=== PATIENT | female | born 1965 | race African-American/Black ===

== ENCOUNTER 2022-02-19 13:21 | Inpatient (IN) | payer MEDICAID ==
[~2022-02-19] VITALS: Ht 162.6 cm; Wt 91.0 kg
[~2022-02-19 13:21] MED LIST: ALBU18HF2 IH; BENA1TAB18 PO
[2022-02-19] MEDS ORDERED: NITROGLYCERIN OINT 1GM/INCH UDPKT TD ONE (14:15)
[2022-02-19] MEDS ORDERED: ASPIRIN 81MG TABLET PO ONE (14:15)
[2022-02-19] MEDS ORDERED: FUROSEMIDE 40MG/4ML VIAL IV ONE (14:15)
[2022-02-19 14:33] LABS: HEMATOCRIT. 55.3 % (36.0-48.0); HEMOGLOBIN. 18.3 g/dL (12.0-16.0); MEAN CORPUSCULAR HEMOGLOBIN 29.9 pg (28.0-32.0); MEAN CORPUSCULAR VOLUME 90.3 fL (81.0-99.0); MEAN PLATELET VOLUME 9.2 fl (7.4-10.4); PLATELET 157 x1000/uL (130-400); RED BLOOD CELL COUNT 6.13 mill/uL (4.2-5.4); RED CELL DISTRIBUTION WIDTH 15.7 % (11.6-14.6)
[2022-02-19 14:50] LABS: CHLORIDE 98 mEq/L (98-107)
[2022-02-19 15:14] LABS: BG BASE EXCESS 4.5 mmol/L (-2.0-2.0); BG CARBOXYHEMOGLOBIN 10.2 % (0.5-1.5); BG DEOXYHEMOGLOBIN 11.3 % (0.0-5.0); BG FRACTION INSPIRED OXYGEN 21; BG HCO3 ACT 33.1 mmol/L (22.0-26.0); BG METHEMOGLOBIN 0.2 % (0.0-1.5); BG OXYGEN SATURATION 87.4 % (92.0-98.5); BG OXYHEMOGLOBIN 78.3 % (94.0-97.0); BG PCO2 63.5 mmHg (35.0-45.0); BG PH 7.335 (7.350-7.450); BG PO2 45.2 mmHg (75.0-100.0); BG SAMPLE SITE RIGHT RADIAL; BG TOTAL HEMOGLOBIN 18.7 g/dL (12.0-18.0); BG VENT MODE ROOM AIR
[2022-02-19 16:29] LABS: BG CARBOXYHEMOGLOBIN 8.3 % (0.5-1.5); BG DEOXYHEMOGLOBIN 5.1 % (0.0-5.0); BG FRACTION INSPIRED OXYGEN 40; BG HCO3 ACT 34.6 mmol/L (22.0-26.0); BG METHEMOGLOBIN 0.5 % (0.0-1.5); BG OXYGEN SATURATION 94.4 % (92.0-98.5); BG OXYHEMOGLOBIN 86.1 % (94.0-97.0); BG PCO2 63.6 mmHg (35.0-45.0); BG PH 7.354 (7.350-7.450); BG PO2 68.3 mmHg (75.0-100.0); BG SAMPLE SITE RIGHT RADIAL; BG TOTAL HEMOGLOBIN 19.2 g/dL (12.0-18.0); BG VENT MODE NASAL CANNULA
[2022-02-19 17:08] LABS: PLATELET ESTIMATE NORMAL
[2022-02-19] MEDS ORDERED: ONDANSETRON HCL 4MG/2ML INJ IV STA (18:06)
[2022-02-19] MEDS ORDERED: MORPHINE SULFATE 4 MG/ML CPJ (NOT FOR IM USE) IV STA (18:06)
[2022-02-19 18:24] LABS: BG BASE EXCESS 7.1 mmol/L (-2.0-2.0); BG CARBOXYHEMOGLOBIN 6.8 % (0.5-1.5); BG DEOXYHEMOGLOBIN 0.2 % (0.0-5.0); BG FRACTION INSPIRED OXYGEN 100; BG HCO3 ACT 39.1 mmol/L (22.0-26.0); BG METHEMOGLOBIN 0.7 % (0.0-1.5); BG OXYGEN SATURATION 99.8 % (92.0-98.5); BG OXYHEMOGLOBIN 92.3 % (94.0-97.0); BG PCO2 89.6 mmHg (35.0-45.0); BG PH 7.258 (7.350-7.450); BG PO2 421.9 mmHg (75.0-100.0); BG SAMPLE SITE RIGHT BRACHIAL; BG TOTAL HEMOGLOBIN 18.1 g/dL (12.0-18.0); BG VENT MODE MASK - BIPAP
[2022-02-19] MEDS: NITROGLYCERIN OINT 1GM/INCH UDPKT TD SCH (20:51)
[2022-02-19] MEDS ORDERED: ACETAMINOPHEN 325MG TABLET PO PRN (21:00)
[2022-02-19] MEDS ORDERED: CLONIDINE 0.1MG TABLET PO PRN (21:00)
[2022-02-19] MEDS ORDERED: DOCUSATE SODIUM 100MG CAPSULE PO PRN (21:00)
[2022-02-19] MEDS ORDERED: GUAIFENESIN 200MG/10ML SUGAR FREE UDC PO PRN (21:00)
[2022-02-19] MEDS ORDERED: CLONIDINE 0.1MG TABLET PO NR (21:00)
[2022-02-19] MEDS ORDERED: MAGNESIUM/ALUMINUM HYDROXIDE/SIMETHICONE 30ML UDC PO PRN (21:00)
[2022-02-19] MEDS ORDERED: MAGNESIUM 2 G PREMIX 50 ML IV NR (21:15)
[2022-02-19 21:40] LABS: PHOSPHORUS 4.4 mg/dL (2.5-4.9)
[2022-02-19] MEDS: METHYLPREDNISOLONE SOD SUCC 40 MG/ML VIAL IV SCH (21:41)
[2022-02-19] MEDS ORDERED: AZITHROMYCIN 500MG/250ML 250 ML IV SCH (21:45)
[2022-02-19] MEDS ORDERED: METHYLPREDNISOLONE SOD SUCC 125 MG/2 ML VIAL IV NR (21:45)
[2022-02-19 22:06] LABS: VITAMIN B12 SERUM 526 pg/mL (211-911)
[2022-02-19 22:54] LABS: D-DIMER 0.69 mg/L FEU (<0.50); INR 1.1; PROTHROMBIN TIME 11.9 sec (9.6-11.0)
[2022-02-19 23:00] LABS: CREATINE KINASE 106 IU/L (26-192)
[2022-02-20] MEDS ORDERED: BUDESONIDE 0.5MG/2ML NEB HHN SCH
[2022-02-20] MEDS: NITROGLYCERIN OINT 1GM/INCH UDPKT TD SCH (04:45)
[2022-02-20 06:40] LABS: CHLORIDE 95 mEq/L (98-107)
[2022-02-20 06:48] LABS: CREATINE KINASE 99 IU/L (26-192)
[2022-02-20 06:55] LABS: HEMATOCRIT. 49.8 % (36.0-48.0); HEMOGLOBIN. 16.5 g/dL (12.0-16.0); MEAN CORPUSCULAR HEMOGLOBIN 29.7 pg (28.0-32.0); MEAN CORPUSCULAR VOLUME 90.1 fL (81.0-99.0); MEAN PLATELET VOLUME 8.6 fl (7.4-10.4); PLATELET 137 x1000/uL (130-400); RED BLOOD CELL COUNT 5.53 mill/uL (4.2-5.4); RED CELL DISTRIBUTION WIDTH 15.4 % (11.6-14.6)
[2022-02-20 07:18] LABS: HDL CHOLESTEROL 58 mg/dL (40-59); LDL CHOLESTEROL 91 mg/dL (5-100); T4 FREE 0.98 ng/dL (0.76-1.46)
[2022-02-20 07:52] LABS: BG CARBOXYHEMOGLOBIN 3.5 % (0.5-1.5); BG HCO3 ACT 35.1 mmol/L (22.0-26.0); BG METHEMOGLOBIN 0.3 % (0.0-1.5); BG OXYGEN SATURATION 92.7 % (92.0-98.5); BG OXYHEMOGLOBIN 89.2 % (94.0-97.0); BG PCO2 90.7 mmHg (35.0-45.0); BG PH 7.206 (7.350-7.450); BG SAMPLE SITE RIGHT RADIAL; BG TOTAL HEMOGLOBIN 17.6 g/dL (12.0-18.0); BG VENT MODE MASK - BIPAP
[2022-02-20] MEDS: METHYLPREDNISOLONE SOD SUCC 40 MG/ML VIAL IV SCH (07:55)
[2022-02-20] MEDS: IPRATROPIUM/ALBUTEROL 0.5-3(2.5)MG/3ML NEB HHN PRN ×2 (08:02→11:18)
[2022-02-20] MEDS ORDERED: ENOXAPARIN 30MG/0.3ML SYR SUBCUT SCH (09:00)
[2022-02-20] MEDS ORDERED: HYDROCHLOROTHIAZIDE 12.5MG CAPSULE PO SCH (09:00)
[2022-02-20] MEDS ORDERED: FUROSEMIDE 40MG/4ML VIAL IVP SCH (09:00)
[2022-02-20] MEDS ORDERED: BENAZEPRIL 10MG TABLET PO SCH (09:00)
[2022-02-20] MEDS ORDERED: PANTOPRAZOLE SODIUM 40 MG/VIAL IV SCH (09:00)
[2022-02-20] MEDS ORDERED: TERBUTALINE SULFATE 1MG/ML VIAL SUBCUT NR (09:30)
[2022-02-20 10:47] LABS: PLATELET ESTIMATE NORMAL
[2022-02-20 11:13] LABS: BG BASE EXCESS 5.9 mmol/L (-2.0-2.0); BG CARBOXYHEMOGLOBIN 2.4 % (0.5-1.5); BG DEOXYHEMOGLOBIN 2.8 % (0.0-5.0); BG FRACTION INSPIRED OXYGEN 60; BG HCO3 ACT 39.5 mmol/L (22.0-26.0); BG METHEMOGLOBIN 0.5 % (0.0-1.5); BG OXYGEN SATURATION 97.1 % (92.0-98.5); BG OXYHEMOGLOBIN 94.3 % (94.0-97.0); BG PCO2 103.4 mmHg (35.0-45.0); BG PO2 99.8 mmHg (75.0-100.0); BG SAMPLE SITE RIGHT RADIAL; BG TOTAL HEMOGLOBIN 18.3 g/dL (12.0-18.0); BG VENT MODE MASK - BIPAP
[2022-02-20 12:00] VITALS: BP 145/114
[2022-02-20] MEDS ORDERED: AZITHROMYCIN 500 MG in DEXT 5% WATER 250 ML IV SCH (21:00)
== END 2022-02-20 12:39 | disposition left against medical advice (07) | DRG 194 ==
LOC: ER 13:21 → MICUSO 17:24 → EDBEDREQ 17:33
PROVIDERS: ADMIT Hospitalist; ATTEND Hospitalist
PROC: 5A09357 Assistance with Respiratory Ventilation, Less than 24 Consecutive Hours, Continuous Positive Airway Pressure (ICD-10-PCS; principal; 2022-02-19)
DX: I11.0 Hypertensive heart disease with heart failure (principal); J96.01 Acute respiratory failure with hypoxia; J96.02 Acute respiratory failure with hypercapnia; E44.1 Mild protein-calorie malnutrition; J45.901 Unspecified asthma with (acute) exacerbation; E87.1 Hypo-osmolality and hyponatremia; I50.9 Heart failure, unspecified; J44.9 Chronic obstructive pulmonary disease, unspecified; Z20.822 Contact with and (suspected) exposure to COVID-19; F17.210 Nicotine dependence, cigarettes, uncomplicated; R73.9 Hyperglycemia, unspecified; T38.0X5A Adverse effect of glucocorticoids and synthetic analogues, initial encounter; F19.10 Other psychoactive substance abuse, uncomplicated; E66.01 Morbid (severe) obesity due to excess calories; D75.1 Secondary polycythemia; J84.9 Interstitial pulmonary disease, unspecified; Z53.29 Procedure and treatment not carried out because of patient's decision for other reasons; Z79.899 Other long term (current) drug therapy; Z91.199 Patient's noncompliance with other medical treatment and regimen due to unspecified reason; Y92.89 Other specified places as the place of occurrence of the external cause; Z68.34 Body mass index [BMI] 34.0-34.9, adult
CPT/HCPCS: 36415; 36600; 71045; 71250; 80053; 80061; 82375; 82550; 82607; 82652; 82805; 83036; 83735; 83880; 84100; 84439; 84443; 84481; 84484; 85025; 85379; 87426; 93005; 93970; 94640; 94660; 99291; C9113; C9803; J0456; J1650; J1940; J2270; J2405; J2920; J3105; J3475; J7626

== ENCOUNTER 2024-08-19 12:29 | Inpatient (IN) | payer OTHER, MEDICAID ==
[~2024-08-19] VITALS: Ht 165.1 cm; Wt 89.8 kg
[2024-08-19 11:40] VITALS: RESP 27
[2024-08-19] MEDS: NITROGLYCERIN OINT 1GM/INCH UDPKT TD ONE (13:49)
[2024-08-19] MEDS: METHYLPREDNISOLONE SOD SUCC 125MG/2ML (ACT-O-VIAL) IV STA (13:49)
[2024-08-19 14:19] LABS: HEMATOCRIT. 43.8 % (36.0-48.0); HEMOGLOBIN. 14.1 g/dL (12.0-16.0); MEAN CORPUSCULAR HEMOGLOBIN 28.8 pg (28.0-32.0); MEAN CORPUSCULAR HGB CONC 32.1 g/dL (31.0-37.0); MEAN CORPUSCULAR VOLUME 89.9 fL (81.0-99.0); MEAN PLATELET VOLUME 8.3 fl (7.4-10.4); PLATELET 166 x1000/uL (130-400); RED BLOOD CELL COUNT 4.88 mill/uL (4.2-5.4); RED CELL DISTRIBUTION WIDTH 16.7 % (11.6-14.6); WHITE BLOOD COUNT 2.9 x1000/uL (4.5-11.0)
[2024-08-19 14:23] LABS: CHLORIDE 100 mEq/L (98-107); DIFFERENTIAL COMMENT 1; POTASSIUM 4.2 mEq/L (3.5-5.1); SODIUM 139 mEq/L (136-145)
[2024-08-19 14:25] LABS: CALCIUM 9.3 mg/dL (8.7-10.4); CARBON DIOXIDE 31 mEq/L (21-32)
[2024-08-19 14:29] LABS: GLUCOSE 95 mg/dL (70-105); UREA NITROGEN BLOOD 20 mg/dL (9-23)
[2024-08-19 14:31] LABS: ALANINE AMINOTRANSFERASE 40 IU/L (10-49); ALBUMIN 4.2 g/dL (3.2-4.8); ASPARTATE AMINOTRANSFERASE 35 IU/L (<34); BILIRUBIN DIRECT 0.3 mg/dL (<=3.0); BILIRUBIN TOTAL 0.6 mg/dL (0.1-1.0); PROTEIN TOTAL 7.4 g/dL (6.0-8.3); TROPONIN I HIGH SENSITIVITY 31 ng/L (3.0-34)
[2024-08-19] MEDS: IPRATROPIUM BROMIDE (0.02%) 0.5MG/2.5ML NEB HHN STA (14:49)
[2024-08-19] MEDS: ALBUTEROL (0.083%) 2.5MG/3ML NEB HHN STA (14:49)
[2024-08-19 15:01] LABS: ANISOCYTOSIS 1+; PLATELET ESTIMATE NORMAL
[2024-08-19 15:31] VITALS: RESP 19
[2024-08-19 15:50] LABS: INR 1.1; PROTHROMBIN TIME 12.2 sec (9.6-11.0)
[2024-08-19 15:54] LABS: TROPONIN I HIGH SENSITIVITY 28 ng/L (3.0-34)
[2024-08-19] MEDS: FUROSEMIDE 40MG/4ML VIAL IVP ONE (16:38)
[2024-08-19] MEDS: LABETALOL 5MG/ML 4ML INJ IV ONE (16:38)
[2024-08-19] MEDS: HYDRALAZINE 20MG/ML VIAL IV ONE (18:46)
[2024-08-19 19:43] VITALS: RESP 21
[2024-08-19 22:00] VITALS: BP 157/102; PULSE 83; RESP 11; TEMP 35.9; O2SAT 95
[2024-08-19] MEDS ORDERED: IPRATROPIUM/ALBUTEROL 0.5-3(2.5)MG/3ML NEB HHN PRN (23:00)
[2024-08-19] MEDS: HYDRALAZINE HCL 50MG TABLET PO SCH (23:18)
[2024-08-19 23:33] VITALS: RESP 15
[2024-08-19 23:37] VITALS: BP 175/106; PULSE 86; RESP 16; TEMP 36.1
[2024-08-20] VITALS (14 sets, daily range): BP systolic 124–201; BP diastolic 66–136; PULSE 79–104; RESP 14–26; TEMP 36.1–36.7; O2SAT 93–99
[2024-08-20] MEDS ORDERED: HYDRALAZINE 20MG/ML VIAL IV SCH
[2024-08-20] MEDS: FUROSEMIDE 40MG/4ML VIAL IVP NR (00:51)
[2024-08-20 01:28] LABS: BG FRACTION INSPIRED OXYGEN 50; BG HCO3 ACT 33.3 mmol/L (21.0-28.0); BG METHEMOGLOBIN 0.1 % (0.5-1.5); BG OXYGEN SATURATION 92.8 % (94.0-98.0); BG OXYHEMOGLOBIN 89.9 % (94.0-98.0); BG PCO2 78.4 mmHg (32.0-45.0); BG PH 7.246 (7.350-7.450); BG PO2 73.4 mmHg (83.0-108.0); BG SAMPLE SITE LEFT RADIAL; BG TOTAL HEMOGLOBIN 15.9 g/dL (12.0-16.0); BG VENT MODE MASK - BIPAP
[2024-08-20] MEDS ORDERED: CARVEDILOL 3.125 MG TABLET PO SCH (09:00)
[2024-08-20] MEDS: ASPIRIN 81MG TABLET PO SCH (09:39)
[2024-08-20] MEDS: FUROSEMIDE 40MG/4ML VIAL IVP SCH (09:39)
[2024-08-20] MEDS: LOSARTAN 50 MG TABLET PO SCH (09:39)
[2024-08-20] MEDS: METHYLPREDNISOLONE SOD SUCC 40MG/ML (ACT-O-VIAL) IV SCH ×2 (09:40→21:19)
[2024-08-20] MEDS: ENOXAPARIN 30MG/0.3ML SYR SUBCUT SCH (09:40)
[2024-08-20] MEDS: NIFEDIPINE XL 60MG TAB PO SCH (13:35)
[2024-08-20] MEDS: IPRATROPIUM/ALBUTEROL 0.5-3(2.5)MG/3ML NEB HHN SCH (16:45)
[2024-08-20] MEDS: LORAZEPAM 2MG/ML UD SYRINGE IV PRN (22:59)
[2024-08-21] VITALS (12 sets, daily range): BP systolic 114–166; BP diastolic 70–107; PULSE 85–102; RESP 16–29; TEMP 36.3–36.8; O2SAT 89–100
[2024-08-21 10:28] LABS: BG BASE EXCESS 4.4 mmol/L (-2.0-3.0); BG CARBOXYHEMOGLOBIN 1.9 % (0.5-1.5); BG DEOXYHEMOGLOBIN 11.4 % (0.0-5.0); BG FRACTION INSPIRED OXYGEN 28; BG METHEMOGLOBIN 0.1 % (0.5-1.5); BG OXYGEN SATURATION 88.4 % (94.0-98.0); BG OXYHEMOGLOBIN 86.6 % (94.0-98.0); BG PCO2 48.1 mmHg (32.0-45.0); BG PH 7.413 (7.350-7.450); BG PO2 54.5 mmHg (83.0-108.0); BG SAMPLE SITE RIGHT RADIAL; BG TOTAL HEMOGLOBIN 15.3 g/dL (12.0-16.0); BG VENT MODE NASAL CANNULA
[2024-08-21] MEDS: IPRATROPIUM/ALBUTEROL 0.5-3(2.5)MG/3ML NEB HHN SCH (17:00)
== END 2024-08-21 17:45 | disposition left against medical advice (07) | DRG 140 ==
LOC: ER 12:29 → EDBEDREQ 13:42 → ENRESERV 18:43 → 5EST 21:16
PROVIDERS: ADMIT Internal Medicine; ATTEND Internal Medicine
PROC: 5A09357 Assistance with Respiratory Ventilation, Less than 24 Consecutive Hours, Continuous Positive Airway Pressure (ICD-10-PCS; principal; 2024-08-19)
PROC: 5A09357 Assistance with Respiratory Ventilation, Less than 24 Consecutive Hours, Continuous Positive Airway Pressure (ICD-10-PCS; 2024-08-21)
DX: J44.1 Chronic obstructive pulmonary disease with (acute) exacerbation (principal); J96.01 Acute respiratory failure with hypoxia; G93.40 Encephalopathy, unspecified; I50.33 Acute on chronic diastolic (congestive) heart failure; I11.0 Hypertensive heart disease with heart failure; Z53.29 Procedure and treatment not carried out because of patient's decision for other reasons; J96.02 Acute respiratory failure with hypercapnia; F14.90 Cocaine use, unspecified, uncomplicated; E66.2 Morbid (severe) obesity with alveolar hypoventilation; F17.210 Nicotine dependence, cigarettes, uncomplicated; Z68.32 Body mass index [BMI] 32.0-32.9, adult
CPT/HCPCS: 36415; 36600; 71045; 80048; 80076; 82375; 82805; 83880; 84484; 85025; 93005; 93970; 94070; 94640; 94660; 94664; 99291; A4606; J0360; J1650; J1940; J2060; J2919; J3490